=== PATIENT | male | born 1975 | race Caucasian/White ===

== ENCOUNTER 2020-06-09 17:32 | Inpatient (IN) | payer BC ==
[~2020-06-09] VITALS: Ht 182.9 cm; Wt 72.6 kg
[~2020-06-09 17:32] MED LIST: ALPR0.5T7 PO; ASCO500C2 PO; IRON150C10 PO; NO HOME MEDS; OMEP20CA9 PO; OXYC5CAP2 PO
--- NOTE | 2020-06-09 17:47 | NUR ---
PT TRANSFER FROM [facility]. PT W/ HX OF PANCREATIC CA AT AGE 6. PT HAD WHIPPLE PROCEDURE AT TAT TIME. OVER THE YEARS HE HAS HAD PERIODIC PROBLEMS WITH PANCREATITIS. THIS EPISODE STARTED ON AND PROGRESSED WITH PAIN AND FEVER. PT TRANS FOR FURTHER EVAL AND TREATMENT. PT PRESENTS WITH VSS, AND PAIN 34/10, NAD NOTED. DR WASSERMAN AT BEDSIDE. PT ASSESSMENT REVIEWED AND POC DISCUSSED. CALL LIGHT W/I REACH
[2020-06-09] MEDS ORDERED: PANCREALIPASE PO (17:53)
[2020-06-09] MEDS ORDERED: METF500T17 PO ×2 (17:53)
--- NOTE | 2020-06-09 19:00 | NUR ---
PT RESTING COMFORTABLY. ATTEMPT TO CALL REPORT TO RN. UNABLE TO GET A HOLD OF RN.
--- NOTE | 2020-06-09 19:47 | NUR ---
REPORT GIVEN TO MARC YAO.
[2020-06-09] MEDS ORDERED: DOCUSATE 100 MG CAPSULE PO PRN (20:00)
[2020-06-09] MEDS ORDERED: ONDANSETRON 2MG/ML, 2ML IVPush PRN (20:00)
[2020-06-09 20:31] VITALS: BP 136/85
[2020-06-09] MEDS: INSULIN LISPRO 100 UNITS/ML, PEN SQ-INSULIN SCH (21:30)
[2020-06-09] MEDS: LACTATED RINGERS 1,000 ML IV SCH (22:50)
[2020-06-10 00:55] VITALS: BP 125/80
[2020-06-10] MEDS ORDERED: ACETAMINOPHEN 325 MG TABLET PO PRN (01:30)
[2020-06-10] MEDS: HYDROmorphone 2 MG/ML, 1ML IVPush PRN ×3 (05:32→15:21)
[2020-06-10] MEDS: LACTATED RINGERS 1,000 ML IV SCH ×3 (05:35→18:42)
[2020-06-10] MEDS: INSULIN LISPRO 100 UNITS/ML, PEN SQ-INSULIN SCH ×4 (07:00→20:13)
[2020-06-10 07:21] VITALS: BP 124/76
[2020-06-10 08:38] LABS: BASOPHILS % (AUTO) 0 % (0-1); EOSINOPHILS % (AUTO) 0 % (1-7); LYMPHOCYTES % (AUTO) 6 % (22-44); MEAN CORPUSCULAR HGB CONC 34.7 g/dL (33.2-36.2); MONOCYTES % (AUTO) 10 % (2-9); NEUTROPHILS % (AUTO) 83 % (42-75); PLATELET COUNT 204 x10^3/uL (130-400); RED BLOOD COUNT 4.36 x10^6/uL (4.38-5.82); RED CELL DISTRIBUTION WIDTH 12.2 % (9.4-14.8)
[2020-06-10 08:41] LABS: MD NO
[2020-06-10 08:48] LABS: ALANINE AMINOTRANSFERASE 195 U/L (12-78); ALBUMIN 3.2 g/dL (3.4-5.0); ANION GAP 8 mmol/L (5-15); CALCIUM 8.7 mg/dL (8.5-10.1); CHLORIDE 101 mmol/L (98-107); CHOLESTEROL, TOTAL 144 mg/dL (140-239); CREATININE 0.77 mg/dL (0.7-1.3)
[2020-06-10 08:50] LABS: ALKALINE PHOSPHATASE 141 U/L (45-117); BILIRUBIN,TOTAL 2.1 mg/dL (0.2-1.0); CHOL/HDL RATIO 6.3; HDL CHOL % 16 % (26-37); HDL CHOLESTEROL (DIRECT) 23 mg/dL (40-60); LDL CHOLESTEROL,CALCULATED 93 mg/dL (54-169); TRIGLYCERIDES 138 mg/dL (50-200); VLDL CHOLESTEROL 28 mg/dL (0-25)
[2020-06-10 12:41] VITALS: BP 136/82
[2020-06-10] MEDS: ENOXAPARIN 40 MG/0.4 ML SQ SCH (16:10)
[2020-06-10 19:51] VITALS: BP 128/71
[2020-06-11] MEDS: LACTATED RINGERS 1,000 ML IV SCH ×4 (00:57→18:25)
[2020-06-11 01:03] VITALS: BP 151/89
[2020-06-11] MEDS ORDERED: PANTOPRAZOLE 40 MG IV IVPush ONE (04:30)
[2020-06-11 05:22] LABS: BASOPHILS % (AUTO) 0 % (0-1); EOSINOPHILS % (AUTO) 0 % (1-7); LYMPHOCYTES % (AUTO) 10 % (22-44); MEAN CORPUSCULAR HEMOGLOBIN 30.6 pg (27.5-34.5); MEAN CORPUSCULAR HGB CONC 34.3 g/dL (33.2-36.2); MEAN PLATELET VOLUME 8.7 fL (7.4-10.4); MONOCYTES % (AUTO) 12 % (2-9); NEUTROPHILS % (AUTO) 77 % (42-75); PLATELET COUNT 202 x10^3/uL (130-400); RED BLOOD COUNT 4.23 x10^6/uL (4.38-5.82)
[2020-06-11 05:27] LABS: MD NO
[2020-06-11 05:31] LABS: CHLORIDE 101 mmol/L (98-107)
[2020-06-11 05:36] LABS: ALANINE AMINOTRANSFERASE 177 U/L (12-78); ALBUMIN 2.8 g/dL (3.4-5.0); ALKALINE PHOSPHATASE 164 U/L (45-117); ANION GAP 8 mmol/L (5-15); BILIRUBIN,TOTAL 2.1 mg/dL (0.2-1.0); CALCIUM 8.5 mg/dL (8.5-10.1); CHOL/HDL RATIO 9.1; CHOLESTEROL, TOTAL 154 mg/dL (140-239); CREATININE 0.59 mg/dL (0.7-1.3); HDL CHOL % 11 % (26-37); HDL CHOLESTEROL (DIRECT) 17 mg/dL (40-60); LDL CHOLESTEROL,CALCULATED 103 mg/dL (54-169); LDL/HDL RATIO 6.1 (0.5-3.0); TOTAL PROTEIN 6.2 g/dL (6.4-8.2); TRIGLYCERIDES 169 mg/dL (50-200); VLDL CHOLESTEROL 34 mg/dL (0-25)
[2020-06-11] MEDS: INSULIN LISPRO 100 UNITS/ML, PEN SQ-INSULIN SCH ×4 (07:34→20:43)
[2020-06-11 08:00] VITALS: BP 150/90
[2020-06-11] MEDS ORDERED: PROPOFOL 10 MG/ML, 20ML ONE (08:35)
[2020-06-11] MEDS ORDERED: CHLORHEXIDINE 15 ML UDC ONE (08:35)
[2020-06-11] MEDS ORDERED: NEOSTIGMINE 1 MG/ML, 10ML ONE (08:35)
[2020-06-11] MEDS ORDERED: ROCURONIUM 10MG/ML,5ML ONE (08:35)
[2020-06-11] MEDS ORDERED: FENTANYL PF 250 MCG/5ML ONE (08:35)
[2020-06-11] MEDS ORDERED: GLYCOPYRROLATE 0.2MG/1ML, 5ML ONE (08:35)
[2020-06-11] MEDS ORDERED: PHENYLEPHRINE 10 MG/ML ONE (08:45)
[2020-06-11] MEDS ORDERED: OMNIPAQUE 350 MG/ML, 50 ML BOTTLE ONE (08:46)
[2020-06-11] MEDS ORDERED: DIPHENHYDRAMINE 50 MG/ML, 1ML ONE (08:56)
[2020-06-11] MEDS ORDERED: HYDROCORTISONE 100 MG INJ. ONE (08:57)
[2020-06-11] MEDS ORDERED: FENTANYL PF 100 MCG/2ML IV PRN (09:00)
[2020-06-11] MEDS ORDERED: SUGAMMADEX 200 MG/2 ML IVPush ONE (09:09)
[2020-06-11] MEDS: HYDROmorphone 2 MG/ML, 1ML IVPush PRN (12:15)
[2020-06-11 13:30] VITALS: BP 131/82
[2020-06-11] MEDS ORDERED: FAMOTIDINE 10 MG TAB PO PRN (13:30)
[2020-06-11] MEDS ORDERED: OXYcodone/APAP 5/325MG TABLET PO PRN (13:30)
[2020-06-11] MEDS: ENOXAPARIN 40 MG/0.4 ML SQ SCH (15:20)
[2020-06-11 19:41] VITALS: BP 127/78
[2020-06-12 01:50] VITALS: BP 125/70
[2020-06-12] MEDS: LACTATED RINGERS 1,000 ML IV SCH ×2 (01:50→09:35)
[2020-06-12 05:36] LABS: BASOPHILS % (AUTO) 0 % (0-1); EOSINOPHILS % (AUTO) 1 % (1-7); LYMPHOCYTES % (AUTO) 16 % (22-44); MEAN CORPUSCULAR HEMOGLOBIN 30.6 pg (27.5-34.5); MEAN CORPUSCULAR HGB CONC 34.1 g/dL (33.2-36.2); MEAN PLATELET VOLUME 7.9 fL (7.4-10.4); MONOCYTES % (AUTO) 12 % (2-9); NEUTROPHILS % (AUTO) 71 % (42-75); PLATELET COUNT 212 x10^3/uL (130-400); RED BLOOD COUNT 4.47 x10^6/uL (4.38-5.82); RED CELL DISTRIBUTION WIDTH 12.5 % (9.4-14.8)
[2020-06-12 05:39] LABS: ALANINE AMINOTRANSFERASE 205 U/L (12-78); ALBUMIN 2.7 g/dL (3.4-5.0); ANION GAP 5 mmol/L (5-15); CALCIUM 8.6 mg/dL (8.5-10.1); CHLORIDE 104 mmol/L (98-107); CREATININE 0.62 mg/dL (0.7-1.3)
[2020-06-12 05:41] LABS: ALKALINE PHOSPHATASE 203 U/L (45-117); BILIRUBIN,TOTAL 1.7 mg/dL (0.2-1.0); TOTAL PROTEIN 6.2 g/dL (6.4-8.2)
[2020-06-12 05:44] LABS: MD NO
[2020-06-12] MEDS: INSULIN LISPRO 100 UNITS/ML, PEN SQ-INSULIN SCH ×4 (07:00→20:43)
[2020-06-12 08:30] VITALS: BP 144/94
[2020-06-12] MEDS ORDERED: POTASSIUM CHLORIDE 20 MEQ TAB.ER.PRT PO ONE (09:00)
[2020-06-12 13:45] VITALS: BP 150/96
[2020-06-12] MEDS ORDERED: DIPHENHYDRAMINE 50 MG/ML, 1ML IVPush ONE (15:30)
[2020-06-12] MEDS ORDERED: SODIUM CHLORIDE 0.9% 1,000 ML IV ONE (15:30)
[2020-06-12] MEDS: ENOXAPARIN 40 MG/0.4 ML SQ SCH (17:12)
[2020-06-12] MEDS ORDERED: OMNIPAQUE 350 MG/ML, 100ML BOTTLE ONE (17:51)
[2020-06-12 19:09] VITALS: BP 147/90
[2020-06-13 04:17] VITALS: BP 131/79
[2020-06-13 06:28] LABS: BASOPHILS % (AUTO) 0 % (0-1); EOSINOPHILS % (AUTO) 2 % (1-7); LYMPHOCYTES % (AUTO) 16 % (22-44); MEAN CORPUSCULAR HEMOGLOBIN 30.8 pg (27.5-34.5); MEAN CORPUSCULAR HGB CONC 34.6 g/dL (33.2-36.2); MEAN PLATELET VOLUME 8.5 fL (7.4-10.4); MONOCYTES % (AUTO) 13 % (2-9); NEUTROPHILS % (AUTO) 69 % (42-75); PLATELET COUNT 250 x10^3/uL (130-400); RED BLOOD COUNT 4.13 x10^6/uL (4.38-5.82); RED CELL DISTRIBUTION WIDTH 12.5 % (9.4-14.8)
[2020-06-13 06:34] LABS: ALBUMIN 2.9 g/dL (3.4-5.0); ANION GAP 4 mmol/L (5-15); CALCIUM 8.8 mg/dL (8.5-10.1); CHLORIDE 104 mmol/L (98-107)
[2020-06-13 06:35] VITALS: BP 137/78
[2020-06-13 06:39] LABS: % IRON SATURATION 20 % (20-55); ALANINE AMINOTRANSFERASE 215 U/L (12-78); ALKALINE PHOSPHATASE 234 U/L (45-117); BILIRUBIN,TOTAL 1.4 mg/dL (0.2-1.0); CREATININE 0.69 mg/dL (0.7-1.3); IRON LEVEL 51 mcg/dL (65-175); TOTAL IRON BINDING CAPACITY 255 mcg/dL (250-450); TOTAL PROTEIN 6.6 g/dL (6.4-8.2)
[2020-06-13 06:59] LABS: MD SCAN
[2020-06-13] MEDS ORDERED: POTASSIUM CHLORIDE 20 MEQ TAB.ER.PRT PO SCH (08:00)
[2020-06-13] MEDS: INSULIN LISPRO 100 UNITS/ML, PEN SQ-INSULIN SCH ×2 (09:23→12:25)
[2020-06-13] MEDS ORDERED: POTA20TA6 PO (11:51)
[2020-06-13 12:15] VITALS: BP 134/93
[2020-06-14 13:47] LABS: ANA SCREEN NEGATIVE (Negative)
== END 2020-06-13 14:20 | disposition home or self-care (01) | DRG 440 ==
LOC: ED 18:24 → EDIP 18:29 → 4NE 20:15 → DCLOUNGE 06-13 14:15
PROVIDERS: ADMIT Hospitalist; ATTEND Family Medicine
PROC: 0FJB8ZZ Inspection of Hepatobiliary Duct, Via Natural or Artificial Opening Endoscopic (ICD-10-PCS; principal; 2020-06-11 08:30)
DX: K85.90 Acute pancreatitis without necrosis or infection, unspecified (principal); K86.1 Other chronic pancreatitis; Z85.07 Personal history of malignant neoplasm of pancreas; Z90.411 Acquired partial absence of pancreas; Z83.3 Family history of diabetes mellitus; Z82.49 Family history of ischemic heart disease and other diseases of the circulatory system; Z82.5 Family history of asthma and other chronic lower respiratory diseases; E10.9 Type 1 diabetes mellitus without complications; Z88.0 Allergy status to penicillin; Z91.041 Radiographic dye allergy status; R79.89 Other specified abnormal findings of blood chemistry; Z20.822 Contact with and (suspected) exposure to COVID-19
CPT/HCPCS: 36415; 74177; 74181; 74328; 80053; 80061; 82103; 82962; 83036; 83516; 83540; 83550; 83690; 85025; 86038; 86705; 86706; 86790; 86803; 87340; 87635; 93005; 96372; 96374; 96376; G0378; J1170; J1650; J2704; J2710; J3010; Q9967; C1769; C9113; J1200; J1720; J1815; J2370; J7030; J7120